=== PATIENT | male | born 1970 | race Two or more races ===

== ENCOUNTER 2022-07-11 23:40 | Emergency (ER) | payer SELFPAY ==
[~2022-07-11] VITALS: Ht 167.6 cm; Wt 180.0 kg
[2022-07-11 23:48] VITALS: BP 162/78
== END 2022-07-12 05:01 | disposition left against medical advice (07) ==
LOC: EDBD 23:40 → ER 23:48
DX: R07.89 Other chest pain (principal); Z53.21 Procedure and treatment not carried out due to patient leaving prior to being seen by health care provider
CPT/HCPCS: 93005